=== PATIENT | female | born 1960 | race American Indian/Alaskan Native ===

== ENCOUNTER 2021-06-04 11:31 | Emergency (ER) | payer SELFPAY ==
--- NOTE | 2021-06-04 13:04 | Emergency Department Report ---
ED General Adult HPI - General Chief complaint: Dyspnea/Respdistress Stated complaint: RESPIRATORY DISTRESS Source: EMS Mode of arrival: Ambulatory Limitations: No Limitations - History of Present Illness Initial comments: 61-year-old -[place] female with a past medical history of diabetes hypertension presents to the emergency room complaining of shortness of breath body aches no fever no chills but has been vaccinated. She has not had a flu vaccine. She states that she has been having shortness of breath and walking makes it worse sitting and resting makes it better. She states she has a headache back pain that radiates to her left shoulder. She says sometimes her left arm feels strange. She reported that she was concerned that she was having a heart attack. The only surgery she has had is a total hysterectomy in her tonsils. She does have a primary care provider Dr. Tami Moreno. She admits that she has lower leg swelling but no recent trauma no chest pain today. She does admit to having increased urination. States her blood sugar runs in the 200s. Onset/Timin -: days(s) Location: chest, back Consistency: intermittent Treatments Prior to Arrival: other - Related Data Previous Rx's Medication Instructions Recorded Last Taken Type Azithromycin [Zithromax Z-ZABRINA] 250 mg PO DAILY #6 tab 06/04/21 Unknown Rx Promethazine /Codeine 5 ml PO Q6H PRN #110 ml 06/04/21 Unknown Rx [Phenergan/Codeine 6.25-10 mg/5 ml] Allergies Allergy/AdvReac Type Severity Reaction Status Date / Time No Known Allergies Allergy Verified 06/04/21 11:56 ED Review of Systems ROS: Stated complaint: RESPIRATORY DISTRESS Other details as noted in HPI Respiratory: cough, SOB with exertion Gastrointestinal: denies: abdominal pain, nausea, vomiting Genitourinary: frequency Neurological: headache ED Past Medical Hx - Past Medical History Hx Hypertension: Yes Hx Diabetes: Yes - Surgical History Past Surgical History?: Yes Additional Surgical History: hysterectomy - Social History Smoking Status: Never Smoker - Medications Home Medications: Home Medications Medication Instructions Recorded Confirmed Last Taken Type Azithromycin [Zithromax Z-ZABRINA] 250 mg PO DAILY #6 tab 06/04/21 Unknown Rx Promethazine /Codeine 5 ml PO Q6H PRN #110 ml 06/04/21 Unknown Rx [Phenergan/Codeine 6.25-10 mg/5 ml] ED Physical Exam - General Limitations: No Limitations General appearance: alert, in no apparent distress - Head Head exam: Present: atraumatic, normocephalic - Eye Eye exam: Present: normal appearance - ENT ENT exam: Present: mucous membranes moist, normal external ear exam - Neck Neck exam: Present: normal inspection, full ROM - Respiratory Respiratory exam: Present: normal lung sounds bilaterally. Absent: respiratory distress - Cardiovascular Cardiovascular Exam: Present: regular rate, normal rhythm. Absent: systolic murmur, diastolic murmur, rubs, gallop - GI/Abdominal GI/Abdominal exam: Present: soft, normal bowel sounds - Extremities Exam Extremities exam: Present: full ROM, pedal edema (Trace edema). Absent: tenderness - Back Exam Back exam: Present: tenderness (Left scapula point tenderness) - Neurological Exam Neurological exam: Present: alert, oriented X3 - Psychiatric Psychiatric exam: Present: normal affect, normal mood - Skin Skin exam: Present: warm, dry, intact, normal color. Absent: rash ED Course Vital Signs 06/04/21 06/04/21 11:55 12:29 Temperature 98.9 F Pulse Rate 78 81 Respiratory 20 20 Rate Blood Pressure 168/76 171/78 [Right] O2 Sat by Pulse 99 97 Oximetry ED Medical Decision Making - Lab Data Result diagrams: 06/04/21 13:27 06/04/21 13:27 - Radiology Data Radiology results: [place] [address] XRay Report Signed Patient: ALMA ALEXANDER MR#: [id number] : 1960 Acct:[id number] Age/Sex: 61 / F ADM Date: 06/04/21 Loc: ED Attending Dr: Ordering Physician: RICHIE SERRANO Date of Service: 06/04/21 Procedure(s): XR chest routine 2V Accession Number(s): [id number] cc: RICHIE SERRANO Fluoro Time In Minutes: XR chest routine 2V INDICATION / CLINICAL INFORMATION: sob,cough ,wheezing. COMPARISON: None available. FINDINGS: SUPPORT DEVICES: None. HEART /PULMONARY VASCULATURE: No significant abnormality. LUNGS / PLEURA: Very mild bibasilar pulmonary opacities are present, may reflect atelectasis or pneumonia. Mild opacity within the lateral right costophrenic sulcus likely reflects volume loss. No sizable pleural effusion demonstrated. No pneumothorax. ADDITIONAL FINDINGS: No significant additional findings. IMPRESSION: Faint bibasilar pulmonary opacities may reflect volume loss or developing pneumonia. Signer Name: Kenney Bedoya MD Signed: 06/04/2021 1:34 PM Workstation Name: [id number] Transcribed By: BEN Dictated By: KENNEY BEDOYA MD Electronically Authenticated By: KENNEY BEDOYA MD Signed Date/Time: 06/04/211333 DD/ 32 TD/TT: Print Cancel - Medical Decision Making 54-year-old Amharic female accompanied by daughter presents to the emergency room complaining of numbness to the back of her head dizziness. She denies any past medical history currently takes no medications on a daily basis has no known drug allergies. Denies any recent traumas. No nausea no vomiting no fever no chills no abdominal pain chest pain or shortness of breath. CBC CMP EKG troponin chest x-ray urinalysis Chest x-ray shows bibasilar lung disease concerning for developing pneumonia. Labs are stable. Patient be treated for pneumonia and encouraged to go get Covid test. She has been vaccinated. Critical care attestation.: If time is entered above; I have spent that time in minutes in the direct care of this critically ill patient, excluding procedure time. ED Disposition Clinical Impression: Suspected COVID-19 virus infection, Pneumonia Disposition: HOME / SELF CARE / HOMELESS Is pt being admited?: No Does the pt Need Aspirin: No Condition: Stable Instructions: Bacterial Pneumonia (ED), COVID-19 Frequently Asked Questions, Prevent the Spread of COVID-19 if You Are Sick - [facility] Additional Instructions: Your symptoms appear most consistent with a nonspecific viral syndrome. However, given this current pandemic, COVID-19 is in the differential of possibi lities. Despite your previous negative COVID-19 test, I do recommend repeat outpatient Covid 19 testing. In the meantime, isolate/quarantine yourself and stay away from anyone who is elderly, immunocompromised or chronically ill. You can use ibuprofen every 6-8 hours and Tylenol every 4-8 hours, using the dosing on the back of the bottle, as needed for any fever or body aches. Return to the emergency department with any worsening of your symptoms, development of chest pain or shortness of breath, or with any acute distress. Complete antibiotics as prescribed. Increase your fluid intake. Take cough medication. Do not operate heavy machinery while taking cough medicine. Prescriptions: Promethazine /Codeine [Phenergan/Codeine 6.25-10 mg/5 ml] 5 ml PO Q6H PRN #110 ml PRN Reason: cough Azithromycin [Zithromax Z-ZABRINA] 250 mg PO DAILY #6 tab Referrals: Your, primary care provider [Other] - 3-5 Days Forms: Work/School Release Form(ED) Time of Disposition: 15:06
--- NOTE | 2021-06-04 13:38 | XRay Report ---
XR chest routine 2V INDICATION / CLINICAL INFORMATION: sob,cough ,wheezing. COMPARISON: None available. FINDINGS: SUPPORT DEVICES: None. HEART /PULMONARY VASCULATURE: No significant abnormality. LUNGS / PLEURA: Very mild bibasilar pulmonary opacities are present, may reflect atelectasis or pneum onia. Mild opacity within the lateral right costophrenic sulcus likely reflects volume loss. No sizab le pleural effusion demonstrated. No pneumothorax. ADDITIONAL FINDINGS: No significant additional findings. IMPRESSION: Faint bibasilar pulmonary opacities may reflect volume loss or developing pneumonia. Signer Name: Alfred Bedoya MD Signed: 06/04/2021 1:34 PM Workstation Name: [id number]
[2021-06-04 13:59] LABS: Basophils % (Auto) 0.4 % (0.0-1.8); Eosinophils # (Auto) 0.1 K/mm3 (0.0-0.4); Eosinophils % (Auto) 1.4 % (0.0-4.3); Hematocrit 31.8 % (30.3-42.9); Hemoglobin 10.5 gm/dl (10.1-14.3); Lymphocytes # (Auto) 2.2 K/mm3 (1.2-5.4); Lymphocytes % (Auto) 31.6 % (13.4-35.0); Mean Corpuscular HGB Conc 33 % (30-34); Mean Corpuscular Volume 92 fl (79-97); Monocytes # (Auto) 0.7 K/mm3 (0.0-0.8); Monocytes % (Auto) 9.9 % (0.0-7.3); Platelet Count 266 K/mm3 (140-440); Red Blood Count 3.45 M/mm3 (3.65-5.03); Red Cell Distribution Width 14.6 % (13.2-15.2)
[2021-06-04 14:12] LABS: Bilirubin,Urine NEG (Negative); Blood,Urine NEG (Negative); Color,Urine Yellow (Yellow); Mucus,Urine FEW /HPF; Protein,Urine <15 mg/dL mg/dL (Negative); Urobilinogen,Urine < 2.0 mg/dL (<2.0)
[2021-06-04 14:17] LABS: Alanine Aminotransferase 48 units/L (7-56); Albumin 4.2 g/dL (3.9-5); BUN/Creatinine Ratio 14; Blood Urea Nitrogen 13 mg/dL (7-17); Calcium 8.7 mg/dL (8.4-10.2); Hemolysis Index 1
[2021-06-04 15:21] VITALS: BP 184/83
--- NOTE | 2021-06-05 09:10 | Electrocardiograph Report ---
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
== END 2021-06-04 15:20 | disposition home or self-care (01) ==
LOC: ED 11:31
DX: J18.9 Pneumonia, unspecified organism (principal)
CPT/HCPCS: 36415; 71046; 80053; 81001; 84484; 85025; 93005; 99284